=== PATIENT | male | born 1965 | race Caucasian/White ===

== ENCOUNTER 2021-04-23 21:18 | Emergency (ER) | payer OTHER ==
--- NOTE | 2021-04-23 21:57 | EDM.PDOC ---
ED HPI GENERAL MEDICAL PROBLEM - General Chief Complaint: Respiratory Problem Stated Complaint: FEVER, SOB, LOW O2 SATS AT HOME Time Seen by Provider: 04/23/21 21:30 Source of Information: Reports: Patient, EMS History Limitations: Reports: No Limitations - History of Present Illness INITIAL COMMENTS - FREE TEXT/NARRATIVE: 55-year-old male with known Covid, got monoclonal antibody 4 days ago but today his O2 sats were lower than they have been in a concern to his so she sent him in. He has fatigue, muscle aches, persistent cough but no real shortness of breath. O2 saturations at home were "82 to 88%". He is coughing up yellow sputum and running intermittent fevers. He is not vaccinated. Onset: Gradual Duration: Day(s): (Patient has been sick for 10 days) Associated Symptoms: Reports: Cough, Fever/Chills, Loss of Appetite, Malaise, Weakness - Related Data Allergies Allergy/AdvReac Type Severity Reaction Status Date / Time No Known Allergies Allergy Verified 04/20/21 15:27 Home Meds: Home Meds NK [No Known Home Meds] 04/20/21 [History] Past Medical History - Infectious Disease History Infectious Disease History: Reports: Chicken Pox, Novel Coronavirus Social & Family History - Tobacco Use Tobacco Use Status *Q: Never Tobacco User - Caffeine Use Caffeine Use: Reports: None ED ROS GENERAL - Review of Systems Review Of Systems: See Below Constitutional: Reports: Malaise HEENT: Denies: Throat Pain Respiratory: Reports: Cough, Sputum GI/Abdominal: Denies: Diarrhea, Nausea, Vomiting Skin: Reports: No Symptoms Neurological: Reports: Headache, Weakness Psychiatric: Reports: No Symptoms ED EXAM, GENERAL - Physical Exam Exam: See Below (Intermittent headache) Exam Limited By: No Limitations General Appearance: Alert, No Apparent Distress Throat/Mouth: Normal Inspection Head: Atraumatic Respiratory/Chest: No Respiratory Distress, Other (Bilateral scattered rhonchi with some scattered expiratory wheezes but underlying good air movement) Cardiovascular: Regular Rate, Rhythm. No: Tachycardia Neurological: Alert, Oriented Psychiatric: Normal Affect, Normal Mood Course - Vital Signs Last Recorded V/S: Last Vital Signs Temp 98.0 F 04/23/21 21:21 Pulse 91 04/23/21 21:21 Resp 18 04/23/21 21:21 BP 134/88 04/23/21 21:21 Pulse Ox 93 L 04/23/21 21:21 - Re-Assessments/Exams Free Text/Narrative Re-Assessment/Exam: 04/23/21 21:55 Patient's O2 saturations here in the emergency room are 91 to 95%. He does not have an increased respiratory rate or labored breathing. I will try a course of Zithromax because of the yellowish sputum, and he will decide if he wants to start his ivermectin. He can return anytime if worsening but no reason for hospitalization or further treatment at this time. Departure - Departure Time of Disposition: 22:07 Disposition: Home, Self-Care 01 Clinical Impression: COVID-19 - Discharge Information Instructions: COVID-19 Referrals: John Marcus Sr, MD [Primary Care Provider] - Forms: ED Department Discharge Care Plan Goals: Rest, stay hydrated, increase activity as tolerated and take antibiotic as prescribed. Ivermectin is your decision between you and your regular doctor. Return if persistent and increasing shortness of breath or you develop other concerns. Sepsis Event Note (ED) - Evaluation Sepsis Screening Result: No Definite Risk - Focused Exam Vital Signs: Vital Signs Temp Pulse Resp BP Pulse Ox 04/23/21 21:21 98.0 F 91 18 134/88 93 L
== END 2021-04-23 22:07 | disposition home or self-care (01) ==
LOC: JP.ED 21:18
DX: U07.1 COVID-19 (principal)
CPT/HCPCS: 99283